=== PATIENT | female | born 1975 | race Asian ===

== ENCOUNTER 2018-04-11 00:30 | Emergency (ER) | payer OTHER ==
[~2018-04-11] VITALS: Ht 149.9 cm; Wt 61.0 kg
[2018-04-11 00:30] VITALS: BP 140/87
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
--- NOTE | 2018-04-11 00:46 | NUR ---
Dr. Singletary evaluating patient at bedside.
[2018-04-11 00:54] VITALS: BP 137/82
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
== END 2018-04-11 00:54 ==
LOC: MED 00:30
DX: Z02.89 Encounter for other administrative examinations (principal); Z72.89 Other problems related to lifestyle; Z88.1 Allergy status to other antibiotic agents; V89.2XXA Person injured in unspecified motor-vehicle accident, traffic, initial encounter; Y93.89 Activity, other specified; Y92.89 Other specified places as the place of occurrence of the external cause; Y99.8 Other external cause status
CPT/HCPCS: 99283